=== PATIENT | male | born 1940 | race Caucasian/White ===

== ENCOUNTER 2021-09-20 15:36 | Emergency (ER) | payer OTHER, MEDICAID ==
[~2021-09-20] VITALS: Ht 172.7 cm; Wt 73.9 kg
[2021-09-20 15:40] VITALS: BP_SYST 166
--- NOTE | 2021-09-20 15:40 | NUR ---
PT TRIAGED AND PLACED IN WAITING ROOM FOR AVAILABLE BED IN MAIN ED
--- NOTE | 2021-09-20 15:48 | NUR ---
PT CAME IN FROM HOME C/O MASS TO LEFT SIDE OF NECK X 3-4 YEARS AND PAIN WITH SWALLOWING. DENIES ANY HX OF THESE SYMPTOMS. PT IS ABLE TO SPEAK WITHOUT DISTRESS, NO SOB OR DYSPNEA, PT IS AMBULATORY, AAOX4, VSS
--- NOTE | 2021-09-20 16:25 | NUR ---
Placed in room 8 . Placed on case monitor, blood pressure machine and pulse oximeter. To gown for exam. Side rails up. Report given to IVANIA CHAVEZ.
--- NOTE | 2021-09-20 16:35 | NUR ---
Pt. bib DIL, c/o lump on right side of lower chin x3-4 days. states only painful when swallowing. Able to palpate bump approximatley 2.5 cm ball on under side of chin.
--- NOTE | 2021-09-20 16:48 | NUR ---
KAI Ryan at bedside examining patient.
[2021-09-20 17:21] LABS: BASOPHILS # (AUTO) 0.1 K/uL (0.0-0.2); BASOPHILS % (AUTO) 0.7 % (0.0-2.0); EOSINOPHILS # (AUTO) 0.2 K/uL (0.0-0.4); EOSINOPHILS % (AUTO) 1.7 % (0.0-4.0); HEMATOCRIT 40.8 % (36-54); HEMOGLOBIN 13.9 g/dL (14.0-18.0); LYMPHOCYTES # (AUTO) 1.5 K/uL (1.0-5.5); LYMPHOCYTES % (AUTO) 15.4 % (20.5-51.5); MEAN CORPUSCULAR HEMOGLOBIN 30 pg (27-31); MEAN CORPUSCULAR HGB CONC 34 % (32-36); MEAN CORPUSCULAR VOLUME 87 fL (79.0-98.0); MONOCYTES # (AUTO) 0.8 K/uL (0.0-1.0); MONOCYTES % (AUTO) 8.7 % (1.7-9.3); NEUTROPHILS % (AUTO) 73.5 % (40.0-70.0); PLATELET COUNT (AUTO) 224 K/uL (130-430); RED BLOOD CELL COUNT(AUTO) 4.67 MIL/uL (4.2-6.2); RED CELL DISTRIBUTION WIDTH 12.9 % (9.0-15.0); WHITE BLOOD COUNT (AUTO) 9.5 K/uL (4.8-10.8)
--- NOTE | 2021-09-20 17:27 | NUR ---
RADIOLOGY AT BEDSIDE
[2021-09-20 17:35] LABS: ANION GAP 7 (5-15); CALCIUM 9.2 mg/dL (8.4-11.0); CHLORIDE 102 mmol/L (98-107); CREATININE 1.34 mg/dL (0.55-1.30); GLUCOSE 78 mg/dL (70-99); POTASSIUM 4.3 mmol/L (3.5-5.1); SODIUM SERUM 139 mmol/L (136-145); UREA NITROGEN, BLOOD 22 mg/dL (8-21)
[2021-09-20 17:41] LABS: ALANINE AMINOTRANSFERASE 25 U/L (12-78); ALBUMIN 3.5 g/dL (3.4-4.8); ASPARTATE AMINOTRANSFERASE 24 U/L (10-37); TOTAL BILIRUBIN 0.2 mg/dL (0.0-1.0)
[2021-09-20] MEDS ORDERED: IBUP-1969 PO ×3 (18:22→18:59)
[2021-09-20] MEDS ORDERED: AMOX500C2 PO ×3 (18:22→18:59)
[2021-09-20] MEDS ORDERED: AMOXICILLIN 500 MG CAPSULE PO ONE (18:30)
[2021-09-20] MEDS ORDERED: DECADRON 4 MG TABLET PO ONE (18:30)
[2021-09-20 18:58] VITALS: BP_SYST 168
--- NOTE | 2021-09-20 18:59 | NUR ---
Patient given written and verbal discharge instructions and verbalizes understanding. ER Dr. Whittington discussed with patient the results and treatment provided. Patient in stable condition. ID arm band removed. Rx of Amoxicillin and Motrin given. Patient educated on pain management and to follow up with PMD. Pain Scale 0. Opportunity for questions provided and answered. Medication side effect fact sheet provided.
== END 2021-09-20 18:58 | disposition home or self-care (01) ==
LOC: SED 15:36
DX: R59.0 Localized enlarged lymph nodes (principal); E11.9 Type 2 diabetes mellitus without complications; I10 Essential (primary) hypertension
CPT/HCPCS: 36415; 76536; 80053; 85025; 99284; J8540